=== PATIENT | female | born 1965 | race Caucasian/White ===

== ENCOUNTER 2020-04-06 05:06 | Emergency (ER) | payer MEDICAID ==
[~2020-04-06] VITALS: Ht 165.1 cm; Wt 90.9 kg
[~2020-04-06 05:06] MED LIST: ALB0.5UD IH
[2020-04-06] MEDS ORDERED: ipratropium/albuterol 3ml nebule NEB ONE (06:25)
[2020-04-06] MEDS ORDERED: azithromycin 250mg tablet PO ONE (06:25)
[2020-04-06] MEDS ORDERED: albuterol 2.5 MG/3 ML nebule NEB ONE (06:25)
[2020-04-06] MEDS ORDERED: predniSONE 20 mg tablet PO ONE (06:25)
[2020-04-06 06:36] LABS: BASOPHILS # (AUTO) 0.1 X10'3 (0-0.2); BASOPHILS % (AUTO) 0.9 % (0-1); EOSINOPHILS # (AUTO) 0.5 X10'3 (0-0.9); EOSINOPHILS % (AUTO) 7.7 % (0-6); HEMOGLOBIN 14.2 g/dl (12.0-16.0); LYMPHOCYTES # (AUTO) 1.8 X10'3 (1.1-4.8); LYMPHOCYTES % (AUTO) 29.3 % (21-51); MEAN CORPUSCULAR HEMOGLOBIN 30.3 PG (27.0-31.0); MEAN CORPUSCULAR HGB CONC 33.9 g/dL (33.0-36.5); MEAN CORPUSCULAR VOLUME 89.3 FL (78-98); MEAN PLATELET VOLUME 8.4 FL (7.4-10.4); MONOCYTES # (AUTO) 0.5 X10'3 (0-0.9); NEUTROPHILS # (AUTO) 3.3 X10'3 (1.8-7.7); NEUTROPHILS % (AUTO) 54.1 % (42-75); PLATELET COUNT 204 X10'3 (140-440); RED CELL DISTRIBUTION WIDTH 12.5 % (11.5-14.5)
[2020-04-06 06:51] LABS: ALANINE AMINOTRANSFERASE 39 U/L (12-78); ALBUMIN 3.4 G/DL (3.4-5.0); ALBUMIN/GLOBULIN RATIO 0.8 (1.1-1.5); ALKALINE PHOSPHATASE 69 IU/L (46-116); ANION GAP 5 (8-16); ASPARTATE AMINO TRANSFERASE 35 U/L (10-37); BILIRUBIN,TOTAL 0.4 MG/DL (0.1-1.0); BLOOD UREA NITROGEN 9 MG/DL (7-18); BUN/CREATININE RATIO 12.7 (6.6-38.0); CALCIUM 9.3 MG/DL (8.5-10.1); CHLORIDE 107 MMOL/L (99-107); CREATININE 0.71 MG/DL (0.40-0.90); GLUCOSE 98 MG/DL (70-104); POTASSIUM 3.7 MMOL/L (3.5-5.1); SODIUM 143 MMOL/L (135-145); TOTAL CARBON DIOXIDE 30.8 MMOL/L (24-32); TOTAL PROTEIN 7.9 G/DL (6.4-8.2); eGFR 86 ML/MIN
[2020-04-06 06:54] LABS: TROPONIN I < 0.04 NG/ML (0.0-0.05)
[2020-04-06 07:05] VITALS: BP 161/142
--- NOTE | 2020-04-06 07:54 | NUR ---
RT at bedside.
[2020-04-06] MEDS ORDERED: PRED20TA PO (08:21)
[2020-04-06] MEDS ORDERED: AZIT-63 PO (08:21)
== END 2020-04-06 09:05 | disposition home or self-care (01) ==
LOC: ER 05:06
DX: J44.9 Chronic obstructive pulmonary disease, unspecified (principal); Z20.828 Contact with and (suspected) exposure to other viral communicable diseases; F32.9 Major depressive disorder, single episode, unspecified; F17.200 Nicotine dependence, unspecified, uncomplicated; F15.90 Other stimulant use, unspecified, uncomplicated; F11.90 Opioid use, unspecified, uncomplicated; Z56.0 Unemployment, unspecified; Z88.2 Allergy status to sulfonamides; Z79.899 Other long term (current) drug therapy
CPT/HCPCS: 36415; 71045; 80053; 83605; 84145; 84484; 85025; 87040; 93005; 94640; 99285; J7512; 87635; 94760

== ENCOUNTER 2021-10-17 12:02 | Emergency (ER) | payer MEDICAID ==
[~2021-10-17] VITALS: Ht 157.5 cm; Wt 90.0 kg
[~2021-10-17 12:02] MED LIST changes: +DULO60CA65 PO; +METH-603 PO; +ONDA4TAB12 PO; +TRAZ-251 PO
[2021-10-17 13:58] VITALS: BP 154/101
== END 2021-10-17 15:13 | disposition home or self-care (01) ==
LOC: ER 12:03
DX: S63.502A Unspecified sprain of left wrist, initial encounter (principal); S60.212A Contusion of left wrist, initial encounter; S80.211A Abrasion, right knee, initial encounter; S46.912A Strain of unspecified muscle, fascia and tendon at shoulder and upper arm level, left arm, initial encounter; J44.9 Chronic obstructive pulmonary disease, unspecified; F32.9 Major depressive disorder, single episode, unspecified; F15.90 Other stimulant use, unspecified, uncomplicated; F11.90 Opioid use, unspecified, uncomplicated; Z56.0 Unemployment, unspecified; Z88.2 Allergy status to sulfonamides; Z79.899 Other long term (current) drug therapy; X58.XXXA Exposure to other specified factors, initial encounter; Y93.89 Activity, other specified; Y92.89 Other specified places as the place of occurrence of the external cause; Y99.8 Other external cause status
CPT/HCPCS: 29125; 73030; 73110; 73564; 99284

== ENCOUNTER 2024-10-15 16:51 | Emergency (ER) | payer MEDICAID ==
[~2024-10-15] VITALS: Ht 165.1 cm; Wt 81.8 kg
[~2024-10-15 16:51] MED LIST changes: +ONDA-243 PO; -ONDA4TAB12 PO
[2024-10-15 16:58] VITALS: TEMP 97.6
[2024-10-15 18:16] LABS: BASOPHILS # (AUTO) 0.1 X10'3 (0-0.2); EOSINOPHILS # (AUTO) 0.3 X10'3 (0-0.9); EOSINOPHILS % (AUTO) 3.7 % (0-6); HEMATOCRIT 44.9 % (35.0-45.0); HEMOGLOBIN 15.1 g/dl (12.0-16.0); LYMPHOCYTES # (AUTO) 2.7 X10'3 (1.1-4.8); LYMPHOCYTES % (AUTO) 29.9 % (21-51); MEAN CORPUSCULAR HEMOGLOBIN 30.6 PG (27.0-31.0); MEAN CORPUSCULAR HGB CONC 33.6 g/dL (33.0-36.5); MEAN CORPUSCULAR VOLUME 91.1 FL (78-98); MONOCYTES # (AUTO) 0.5 X10'3 (0-0.9); MONOCYTES % (AUTO) 5.8 % (2-12); NEUTROPHILS # (AUTO) 5.3 X10'3 (1.8-7.7); NEUTROPHILS % (AUTO) 59.6 % (42-75); PLATELET COUNT 247 X10'3 (140-440); RED BLOOD COUNT 4.92 X10'6 (4.20-5.60); RED CELL DISTRIBUTION WIDTH 12.7 % (11.5-14.5); WHITE BLOOD COUNT 8.9 X10'3 (4.5-11.0)
[2024-10-15 18:34] LABS: ALANINE AMINOTRANSFERASE 33 U/L (12-78); ALBUMIN 3.7 G/DL (3.4-5.0); ALBUMIN/GLOBULIN RATIO 0.9 (1.1-1.5); ALKALINE PHOSPHATASE 76 IU/L (46-116); ANION GAP 2 (8-16); BILIRUBIN,TOTAL 0.7 MG/DL (0.1-1.0); BLOOD UREA NITROGEN 8 MG/DL (7-18); BUN/CREATININE RATIO 12.3 (10.0-20.0); CALCIUM 9.4 MG/DL (8.5-10.1); CHLORIDE 103 MMOL/L (99-107); CREATININE 0.65 MG/DL (0.40-0.90); GLUCOSE 87 MG/DL (70-104); SODIUM 137 MMOL/L (135-145); TOTAL CARBON DIOXIDE 31.7 MMOL/L (24-32); TOTAL PROTEIN 7.9 G/DL (6.4-8.2); eCRCL 86 ML/MIN; eGFR > 90 ML/MIN
[2024-10-15 18:40] LABS: PRO BRAIN NATRIURETIC PEPTIDE 63 PG/ML (0-125)
[2024-10-15 18:52] LABS: ASPARTATE AMINO TRANSFERASE 45 U/L (10-37); POTASSIUM 4.3 MMOL/L (3.5-5.1)
[2024-10-15] MEDS: ipratropium/albuterol 3ml nebule NEB ONE (19:01)
[2024-10-15 19:03] VITALS: PULSE 88; RESP 20; O2SAT 98
[2024-10-15 19:08] VITALS: PULSE 90; RESP 20; O2SAT 100
[2024-10-15] MEDS: methylPREDNISolone sod succ 125mg/2ml vial IV ONE (19:11)
[2024-10-15 19:30] VITALS: BP 148/79; PULSE 87; RESP 19; O2SAT 99
[2024-10-15] MEDS ORDERED: PRED20TA PO (19:30)
[2024-10-15] MEDS ORDERED: ALBU18HF2 IH (19:30)
[2024-10-15] MEDS ORDERED: AZIT500T PO (19:30)
[2024-10-15] MEDS ORDERED: ATR0.5NEB NEB (19:30)
== END 2024-10-15 20:13 | disposition home or self-care (01) ==
LOC: ER 16:51
DX: J44.1 Chronic obstructive pulmonary disease with (acute) exacerbation (principal); F32.A Depression, unspecified; F15.90 Other stimulant use, unspecified, uncomplicated; F11.90 Opioid use, unspecified, uncomplicated; Z56.0 Unemployment, unspecified; Z88.2 Allergy status to sulfonamides; Z79.899 Other long term (current) drug therapy
CPT/HCPCS: 36415; 71045; 80053; 83880; 84484; 85025; 93005; 94640; 96374; 99285; J2919; 94760

== ENCOUNTER 2024-12-05 13:08 | Emergency (ER) | payer MEDICAID ==
[~2024-12-05] VITALS: Ht 162.6 cm; Wt 81.0 kg
[~2024-12-05 13:08] MED LIST changes: +ALBU18HF2 IH; +ATR0.5NEB NEB
[2024-12-05 13:34] VITALS: BP 166/91; TEMP 97.7
[2024-12-05] MEDS: dexamethasone sod phosphate 10mg/ml inj IM STA (15:04)
[2024-12-05] MEDS: ipratropium/albuterol 3ml nebule NEB STA (15:17)
[2024-12-05 15:21] VITALS: PULSE 76; RESP 18; O2SAT 97
[2024-12-05 15:27] VITALS: PULSE 64; RESP 20; O2SAT 98
[2024-12-05] MEDS ORDERED: ALBU8HFA PO (16:46)
[2024-12-05] MEDS ORDERED: PRED20TA PO (16:46)
== END 2024-12-05 16:50 | disposition home or self-care (01) ==
LOC: ER 13:09
DX: J44.1 Chronic obstructive pulmonary disease with (acute) exacerbation (principal); F17.210 Nicotine dependence, cigarettes, uncomplicated; F32.A Depression, unspecified; F15.90 Other stimulant use, unspecified, uncomplicated; F11.90 Opioid use, unspecified, uncomplicated; Z56.0 Unemployment, unspecified; Z88.2 Allergy status to sulfonamides; Z79.899 Other long term (current) drug therapy
CPT/HCPCS: 94640; 96372; 99283; J1100; 94760